=== PATIENT | female | born 1995 | race African-American/Black ===

== ENCOUNTER 2017-03-22 15:27 | Emergency (ER) | payer SELFPAY ==
--- NOTE | 2017-03-22 16:19 | ER Document Report ---
ED GI/ - General Chief Complaint: Nausea Stated Complaint: NAUSEA,ABDOMINAL PAIN Time Seen by Provider: 03/22/17 16:14 Mode of Arrival: Ambulatory Information source: Patient Notes: 21-year-old female presents to ED for complaint of one weeks worth of nausea with no vomiting and lower abdominal pain pelvic pain. She states she does not have any urinary or vaginal symptoms. She states that in December she had a with the pill in [place]. She states she went back for her follow-up visit and she had not passed the fetus. She states they gave her a second pill. She states she has not followed up with anybody since then. She states she has not had any menstrual cycle since January 05, 2017. She states she is concerned that she still has the second side of her and that is why she is not having any periods. She states she is having pressure and cramping sporadically but not constant in her lower abdomen pelvic area. TRAVEL OUTSIDE OF THE [place] IN LAST 30 DAYS: No - HPI Patient complains to provider of: Pelvic pain Onset: Other - The last week Timing/Duration: Intermittent Quality of pain: Cramping, Pressure Severity at maximum: Mild Pain Level: 2 Location: Pelvis Vaginal bleeding (Compared to normal period): None LMP: 01/05/2017 Associated symptoms: Other - Pelvic pain Exacerbated by: Movement Relieved by: Denies Similar symptoms previously: Yes Recently seen / treated by doctor: No - Related Data Allergies/Adverse Reactions: latex [Latex] Allergy (Mild, Verified 03/22/17 15:29) rash Past Medical History - General Information source: Patient - Social History Smoking Status: Current Every Day Smoker Cigarette use (# per day): Yes - 3-4 cigarettes a day Chew tobacco use (# tins/day): No Smoking Education Provided: Yes - Less than 2 minutes Frequency of alcohol use: Social Drug Abuse: None Occupation: sales Lives with: Spouse/Significant other Family History: CVA, DM, Hypertension, Malignancy. denies: Arthritis, CAD, COPD , Hyperlipidemia, Thyroid Disfunction Patient has suicidal ideation: No Patient has homicidal ideation: No - Past Medical History Cardiac Medical History: Reports: None Pulmonary Medical History: Reports: Hx Asthma, Hx Bronchitis EENT Medical History: Reports: None Neurological Medical History: Reports: None Endocrine Medical History: Reports: None Renal/ Medical History: Reports: None Malignancy Medical History: Reports: None GI Medical History: Reports: Hx Gastroesophageal Reflux Disease Musculoskeltal Medical History: Reports None Skin Medical History: Reports None Psychiatric Medical History: Reports: Hx Depression Traumatic Medical History: Reports: None Infectious Medical History: Reports: None Surgical Hx: Negative Past Surgical History: Reports: None - Immunizations Immunizations up to date: Yes Hx Diphtheria, Pertussis, Tetanus Vaccination: Yes Review of Systems - Review of Systems Constitutional: No symptoms reported EENT: No symptoms reported Cardiovascular: No symptoms reported Respiratory: No symptoms reported Gastrointestinal: Abdominal pain Genitourinary: No symptoms reported Female Genitourinary: Last menstrual period - 01/05/2017 Musculoskeletal: No symptoms reported Skin: No symptoms reported Hematologic/Lymphatic: No symptoms reported Neurological/Psychological: No symptoms reported Physical Exam - Vital signs Vitals: Temp Pulse Resp BP Pulse Ox 98.4 F 101 H 18 126/70 H 100 03/22/17 15:42 03/22/17 15:42 03/22/17 15:42 03/22/17 15:42 03/22/17 15:42 Interpretation: Normal - General General appearance: Appears well, Alert - HEENT Head: Normocephalic, Atraumatic Eyes: Normal Pupils: PERRL - Respiratory Respiratory status: No respiratory distress Chest status: Nontender Breath sounds: Normal Chest palpation: Normal - Cardiovascular Rhythm: Regular Heart sounds: Normal auscultation Murmur: No - Abdominal Inspection: Normal Distension: No distension Bowel sounds: Normal Tenderness: Tender - Bladder area Organomegaly: No organomegaly - Back Back: Normal, Nontender - Extremities General upper extremity: Normal inspection, Nontender, Normal color, Normal ROM , Normal temperature General lower extremity: Normal inspection, Nontender, Normal color, Normal ROM , Normal temperature, Normal weight bearing. No: Larisa's sign - Neurological Neuro grossly intact: Yes Cognition: Normal Orientation: AAOx4 Alvin Coma Scale Eye Opening: Spontaneous Alvin Coma Scale Verbal: Oriented Alvin Coma Scale Motor: Obeys Commands Donahue Coma Scale Total: 15 Speech: Normal Motor strength normal: LUE, RUE, LLE, RLE Sensory: Normal - Psychological Associated symptoms: Normal affect, Normal mood - Skin Skin Temperature: Warm Skin Moisture: Dry Skin Color: Normal Course - Re-evaluation Re-evalutation: 03/22/17 19:13 Discussed labs and ultrasound with patient and patient discharged home to follow -up with her primary doctor and TRACK CAR OPERATOR. - Vital Signs Vital signs: Temp Pulse Resp BP Pulse Ox 98.4 F 101 H 18 126/70 H 100 03/22/17 15:42 03/22/17 15:42 03/22/17 15:42 03/22/17 15:42 03/22/17 15:42 - Diagnostic Test Radiology reviewed: Image reviewed, Reports reviewed Discharge - Discharge Clinical Impression: Pelvic pain Condition: Stable Disposition: HOME, SELF-CARE Additional Instructions: Pelvic Pain There are many causes of pain in the pelvic area. The cause could be the tubes, ovaries, uterus, intestines, appendix, pelvic muscles and connective tissue, or the urinary tract. The cause of your pelvic pain is not clear. However, it seems safe to treat you outside the hospital. If the pain sounds like a temporary problem, we sometimes wait to see if it goes away. Other patients may need additional tests, such as pelvic ultrasound or cultures. Conditions may change. Call us or come back for reexamination if any problems occur, such as: (1) Pain that becomes more severe, steady, or becomes concentrated in one specific area. Also, pain that is more severe with movement or coughing. (2) Vomiting that persists or becomes more frequent. (3) Blood in the vomitus, urine, or bowel movements. Blood in the stool may have a tarry or black appearance. (4) Shaking chills or fever greater than 100 degrees. (5) The abdomen becomes more distended or swollen. (6) Bowel movements cease. (7) Heavy vaginal bleeding. Your UA and ultrasound were both negative. You are not . Please follow-up with a TRACK CAR OPERATOR or your primary doctor for any continued pelvic pain or any other concerns. If you do not start you. In the next couple weeks I would definitely follow-up with the TRACK CAR OPERATOR. Forms: Elevated Blood Pressure, Smoking Cessation Education Referrals: REGINE PEDRAZA MD [Primary Care Provider] - Follow up as needed [facility] [Provider Group] - Follow up as needed
[2017-03-22 16:27] LABS: APPEARANCE,URINE SLIGHTLY-CLOUDY; BILIRUBIN,URINE NEGATIVE (NEGATIVE); GLUCOSE, URINE NEGATIVE (NEGATIVE); KETONES,URINE NEGATIVE (NEGATIVE); LEUKOCYTE ESTERASE,URINE NEGATIVE (NEGATIVE); NITRITE,URINE NEGATIVE (NEGATIVE); PROTEIN,URINE NEGATIVE (NEGATIVE); URINE SPECIFIC GRAVITY 1.018; UROBILINOGEN,URINE NEGATIVE mg/dL (<2.0)
--- NOTE | 2017-03-22 19:02 | RADIOLOGY REPORT (SQ) ---
EXAM DESCRIPTION: U/S NON-OB PELVIS TV W/O DOP COMPLETED DATE/TIME: 03/22/2017 6:52 pm REASON FOR STUDY: Pelvic pain COMPARISON: None. TECHNIQUE: Dynamic and static grayscale images acquired of the pelvis via transvaginal approach and recorded on PACS. Additional selected color Doppler and spectral images recorded. LIMITATIONS: None. FINDINGS: UTERUS: Contour normal. No mass. ENDOMETRIAL STRIPE: No focal or generalized thickening. No masses. CERVIX: 1.5 cm. No nabothian cysts. RIGHT OVARY: No abnormal masses. RIGHT OVARY DOPPLER: Doppler not done. LEFT OVARY: No abnormal masses. LEFT OVARY DOPPLER: Doppler not done. FREE FLUID: None noted. OTHER: No other significant finding. MEASUREMENTS: UTERUS: 6.9 x 4.6 x 5.4 cm. ENDOMETRIAL STRIPE: 6 mm. RIGHT OVARY: 4.2 x 2.8 x 2.4 cm. LEFT OVARY: 3.9 x 2.4 x 3 cm. IMPRESSION: Normal transvaginal pelvic ultrasound. TECHNICAL DOCUMENTATION: JOB ID: [id number]- All Rights Reserved
[2017-03-22 19:17] VITALS: BP 117/66
== END 2017-03-22 19:17 | disposition home or self-care (01) ==
LOC: ER 15:27
DX: R11.0 Nausea (principal); R10.2 Pelvic and perineal pain; F17.210 Nicotine dependence, cigarettes, uncomplicated; Z71.6 Tobacco abuse counseling; Z91.040 Latex allergy status
CPT/HCPCS: 76830; 81001; 81025; 99284

== ENCOUNTER 2018-05-20 01:32 | Emergency (ER) | payer BC, OTHER ==
[2018-05-20 01:43] VITALS: BP 129/70
== END 2018-05-20 02:07 | disposition left against medical advice (07) ==
LOC: ER 01:32
DX: Z53.21 Procedure and treatment not carried out due to patient leaving prior to being seen by health care provider (principal)

== ENCOUNTER 2019-09-12 16:04 | Outpatient (CLI) | payer OTHER, MEDICAID ==
--- NOTE | 2019-09-12 17:10 | Non Stress Test Report ---
Non Stress Test Datetime Report Generated by CPN: 09/12/2019 17:10 DEMOGRAPHIC EGA NST: 34.0 INDICATION Indication for Study (NST) Other: IUP @ 34 wks, GDM MONITORING Monitor Explained: Monitor Explained; Test Explained; Patient Verbalized Understanding Time on Monitor: 09/12/2019 16:16 Time off Monitor: 09/12/2019 16:51 NST Duration: 35 NST INTERVENTIONS NST Interventions: PO Hydration; Reposition Patient Physician Notified NST: Dr. Small BABY A: [id number] BABY A Movement : Present Contraction Frequency : rare FHR Baseline : 135 Accelerations : 15X15 Decelerations : None Variability : Moderate 6-25bpm NST Review: Meets Criteria for Reactive NST NST Review and Verified By : Rhett Forbes RN NST Results: Reactive NST REPORT Report Trigger: Send Report
== END 2019-09-12 17:06 | disposition home or self-care (01) ==
LOC: LC 16:04
PROVIDERS: ATTEND Obstetrics & Gynecology
DX: O24.415 Gestational diabetes mellitus in pregnancy, controlled by oral hypoglycemic drugs (principal); Z3A.34 34 weeks gestation of pregnancy; Z91.040 Latex allergy status; Z79.84 Long term (current) use of oral hypoglycemic drugs
CPT/HCPCS: 59025

== ENCOUNTER 2019-09-27 16:55 | Outpatient (CLI) | payer OTHER, MEDICAID | END 2019-09-27 18:11 | disposition home or self-care (01) | LOC: LC 16:55 | PROVIDERS: ATTEND Obstetrics & Gynecology | DX: O24.419 Gestational diabetes mellitus in pregnancy, unspecified control (principal); Z3A.36 36 weeks gestation of pregnancy; Z91.040 Latex allergy status | CPT/HCPCS: 59025; 94760 ==

== ENCOUNTER 2019-10-17 07:27 | Inpatient (IN) | payer OTHER, MEDICAID ==
[2019-10-12 10:38] LABS: APPEARANCE,URINE CLOUDY; BILIRUBIN,URINE NEGATIVE (NEGATIVE); CALCIUM OXALATE CRYSTALS,URINE MANY /HPF; COLOR,URINE YELLOW; GLUCOSE, URINE NEGATIVE (NEGATIVE); KETONES,URINE 20 mg/dL (NEGATIVE); LEUKOCYTE ESTERASE,URINE TRACE (NEGATIVE); NITRITE,URINE NEGATIVE (NEGATIVE); PROTEIN,URINE 100 mg/dL (NEGATIVE)
[2019-10-12 10:42] LABS: ABSOLUTE EOSINOPHILS # (AUTO) 0.1 10^3/uL (0.0-0.6); ABSOLUTE LYMPHOCYTES (AUTO) 1.8 10^3/uL (0.5-4.7); ABSOLUTE MONOCYTES (AUTO) 0.4 10^3/uL (0.1-1.4); BASOPHILS % (AUTO) 0.5 % (0-2); EOSINOPHILS % (AUTO) 1.8 % (0-6); HEMATOCRIT 34.4 % (36.0-47.0); HEMOGLOBIN 11.8 g/dL (12.0-15.5); LYMPHOCYTES % (AUTO) 28.2 % (13-45); MEAN CORPUSCULAR HEMOGLOBIN 28.9 pg (27.0-33.4); MEAN CORPUSCULAR HGB CONC 34.4 g/dL (32.0-36.0); MEAN CORPUSCULAR VOLUME 84 fl (80-97); MONOCYTES % (AUTO) 6.4 % (3-13); PLATELET COUNT 259 10^3/uL (150-450); RED BLOOD COUNT 4.09 10^6/uL (3.72-5.28); RED CELL DISTRIBUTION WIDTH 13.4 % (11.5-14.0); SEGMENTED NEUTROPHILS % (AUTO) 63.1 % (42-78); TOTAL CELLS COUNTED % (AUTO) 100 %; WHITE BLOOD COUNT 6.3 10^3/uL (4.0-10.5)
[2019-10-12 10:56] LABS: URINE AMPHETAMINES SCREEN NEGATIVE; URINE BARBITURATES SCREEN NEGATIVE; URINE BENZODIAZEPINES SCREEN NEGATIVE; URINE COCAINE SCREEN NEGATIVE; URINE MARIJUANA (THC) SCREEN NEGATIVE; URINE METHADONE SCREEN NEGATIVE; URINE PHENCYCLIDINE SCREEN NEGATIVE
[~2019-10-17 07:27] MED LIST: CEFAZOLIN 2 GM/D5W RTU 2 GM/50 ML RTUPB IV PRN; RINGERS SOLUTION,LACTATED 1,000 ML IV PRN
[2019-10-17] MEDS ORDERED: CEFAZOLIN 2 GM/D5W RTU 2 GM/50 ML RTUPB IV ONE (08:11)
[2019-10-17] MEDS ORDERED: OXYTOCIN 10 UNIT/ML VIAL ONE (08:26)
[2019-10-17] MEDS ORDERED: MIDAZOLAM 2 MG/2 ML INJ ONE (08:26)
[2019-10-17] MEDS ORDERED: OXYTOCIN/0.9 % SODIUM CHLORIDE 30 UNIT/500 ML RTUINJ ONE ×2 (08:27→11:55)
[2019-10-17] MEDS ORDERED: ONDANSETRON HCL INJ/PF 4 MG/2 ML SDV ONE (08:27)
[2019-10-17] MEDS ORDERED: MORPHINE SULFATE 10 MG/ML INJ ONE (08:27)
[2019-10-17] MEDS ORDERED: BUPIVACAINE HCL 0.25 % INJ/PF (2.5 MG/1 ML) 30 ML VIAL ONE (08:28)
[2019-10-17] MEDS ORDERED: MEPERIDINE HCL/PF INJ 25 MG/1 ML DISP.SYRIN IV PRN (09:06)
[2019-10-17] MEDS ORDERED: ONDANSETRON HCL INJ/PF 4 MG/2 ML SDV IV PRN (09:06)
[2019-10-17] MEDS ORDERED: OXYCODONE-ACETAMINOPHEN 5-325 MG TABLET PO PRN ×3 (09:06→09:52)
[2019-10-17] MEDS ORDERED: MORPHINE SULFATE 10 MG/ML INJ IV PRN (09:06)
[2019-10-17] MEDS ORDERED: FENTANYL CITRATE INJ/PF 100 MCG/2 ML AMPUL IV PRN ×3 (09:06)
[2019-10-17] MEDS ORDERED: PROMETHAZINE HCL INJ 25 MG/1 ML VIAL IV PRN ×3 (09:06→09:52)
[2019-10-17] MEDS ORDERED: DIPHENHYDRAMINE HCL 50 MG/ML VIAL IV PRN (09:06)
[2019-10-17] MEDS ORDERED: DIPH/PERTUSS(ACELL)/TETANUS VAC/PF 0.5 ML SYR (>=10YO) IM PRN (09:52)
[2019-10-17] MEDS ORDERED: OXYTOCIN/0.9 % SODIUM CHLORIDE 30 UNIT/500 ML RTUINJ IV PRN (09:52)
[2019-10-17] MEDS ORDERED: HYDROMORPHONE HCL INJ/PF 2 MG/ML AMPULE IV PRN (09:52)
[2019-10-17] MEDS ORDERED: ACETAMINOPHEN 1,000 MG/100 ML RTUPB IV PRN (09:52)
[2019-10-17] MEDS ORDERED: RINGERS SOLUTION,LACTATED 1,000 ML IV PRN (09:52)
[2019-10-17] MEDS ORDERED: MEASLES,MUMPS&RUBELLA VACC/PF 0.5 ML VIAL SUBCUT PRN (09:52)
--- NOTE | 2019-10-17 10:01 | Operative Report ---
Operative Report DATE OF SURGERY: 10/17/19 PREOPERATIVE DIAGNOSIS: Repeat to prevent risk of uterine rupture and desires permanent surgical sterilization POSTOPERATIVE DIAGNOSIS: Same OPERATION: Repeat via low transverse uterine incision and tubal liga tion using Filshie clips SURGEON: TISHA GLEASON ANESTHESIA: Spinal TISSUE REMOVED OR ALTERED: Placenta COMPLICATIONS: None ESTIMATED BLOOD LOSS: 250 cc INTRAOPERATIVE FINDINGS: Viable female with Apgars of 8 and 9. Normal uterus tubes and ovaries PROCEDURE: Patient was taken to the OR and placed in supine position after her spinal anesthesia. She is prepared and draped in sterile fashion. Bell was placed for drainage of the bladder. Low transverse incision was made and carried down the level of the fascia. The fascial incision was made with knife and extended bilaterally with curved Vaughan scissors. There was dense scarring at the fascia. The fascia was off the rectus muscles using sharp and blunt dissection. The rectus muscles are in the midline. The peritoneum was entered without incident. The lower uterine segment was adhesed to the anterior abdominal wall and this was taken down sharply without injury to the bladder. Bladder blade was placed in uterine segment was identified. A low transverse incision was made creating a bladder flap. Bladder blade was placed low transverse uterine incision was made with the knife and extended with fingertips. The baby was delivered with some fundal pressure. Mouth and nose were suctioned free. The cord is doubly clamped and cut. Baby is passed off to the county supervisor in attendance. The placenta was manually extracted with trailing membranes. The uterus was externalized wrapped in a moist lap sponge. Uterine contents wiped free. Uterus was closed with a running locking layer of 0 chromic suture using the second layer to imbricate the first completing a double layer closure of the uterus. The serosa was closed with a running 2-0 chromic stitch. The tubal ligation was carried out by placing a Filshie clip at the mid isthmic portion of each fallopian tube. Both tubes were identified by their fimbriated end. The pelvis was irrigated and suctioned free of fluid the uterus was replaced in the abdomen. The abdominal wall peritoneum was closed with running 2-0 chromic stitch. Fascia was closed with a running 0 Vicryl in 2 segments. Lonnie's layer was brought together with 0 plain gut stitch and the s kin was closed with running subcuticular 4-0 undyed Vicryl stitch. The wound was dressed mother and baby did well.
[2019-10-17] MEDS ORDERED: ACETAMINOPHEN 1,000 MG/100 ML RTUPB IV ONE (11:52)
[2019-10-17] MEDS: PRENATAL VITAMIN W DHA CAPSULE PO SCH (12:19)
[2019-10-17] MEDS: DOCUSATE SODIUM 100 MG CAPSULE PO SCH ×2 (12:19→17:06)
[2019-10-17] MEDS: KETOROLAC TROMETHAMINE INJ/PF 30 MG/1 ML SDV IV SCH ×2 (13:07→21:23)
[2019-10-17] MEDS: OXYCODONE-ACETAMINOPHEN 5-325 MG TABLET PO PRN ×2 (13:22→21:39)
[2019-10-17] MEDS ORDERED: PHENYLEPHRINE HCL INJ/PF 10 MG/1 ML SDV ONE (14:34)
[2019-10-17] MEDS ORDERED: ACETAMINOPHEN 325 MG TABLET PO PRN (16:00)
[2019-10-18] MEDS: OXYCODONE-ACETAMINOPHEN 5-325 MG TABLET PO PRN ×4 (02:56→20:23)
[2019-10-18] MEDS: KETOROLAC TROMETHAMINE INJ/PF 30 MG/1 ML SDV IV SCH (06:16)
[2019-10-18] MEDS ORDERED: RINGERS SOLUTION,LACTATED 1,000 ML IV ONE (06:30)
[2019-10-18 07:42] LABS: HEMATOCRIT 23.1 % (36.0-47.0); MEAN CORPUSCULAR HEMOGLOBIN 28.6 pg (27.0-33.4); MEAN CORPUSCULAR HGB CONC 33.4 g/dL (32.0-36.0); MEAN CORPUSCULAR VOLUME 85 fl (80-97); PLATELET COUNT 251 10^3/uL (150-450); RED CELL DISTRIBUTION WIDTH 14.1 % (11.5-14.0); WHITE BLOOD COUNT 11.6 10^3/uL (4.0-10.5)
[2019-10-18 07:48] LABS: HEMOGLOBIN 7.7 g/dL (12.0-15.5)
[2019-10-18] MEDS: SIMETHICONE 80 MG TAB.CHEW PO PRN ×2 (07:50→20:36)
[2019-10-18] MEDS ORDERED: ONDANSETRON HCL INJ/PF 4 MG/2 ML SDV IV ONE (08:30)
[2019-10-18] MEDS: PRENATAL VITAMIN W DHA CAPSULE PO SCH (12:06)
[2019-10-18] MEDS: DOCUSATE SODIUM 100 MG CAPSULE PO SCH ×2 (12:06→17:34)
[2019-10-18] MEDS: IBUPROFEN 800 MG TABLET PO SCH ×2 (12:06→17:34)
--- NOTE | 2019-10-18 13:54 | PDOC PROGRESS REPORT ---
Subjective-OB Progress Note for:: 10/18/19 Subjective: I was called by the RN this am d/t pt pulse elevated 120s, BP low but stable. Hgb 7. Reports pt has only had 150cc urine output since FC was d/c last night around 2200. night shift supervisor RN reported bladder scan done this am around 6 and found to have approx 350cc urine. Pt got up to void but was too dizzy and was assisted back to bed. Pt was put on bed mcdonald but was unable to void, FC was replaced per Dr. Ford orders. 2 Units of PRBCs ordered and infusing now. This afternoon, pt reports to me that she is feeling a little better. She is bonding with baby. PRBCs still infusing, FC to BSD with darin urine. Pain is controlled but she feels like her abdomen is swollen. Physical Exam (OB) Vital Signs: Temp Pulse Resp BP Pulse Ox 98.4 F 109 H 18 114/62 100 10/18/19 13:09 10/18/19 13:09 10/18/19 13:09 10/18/19 13:09 10/18/19 13:09 Intake & Output 10/17/19 10/18/19 10/19/19 06:59 06:59 06:59 Intake Total 600 0 Output Total 1500 Balance -900 0 - PIH/Pre-Eclampsia DTR's: 1 + Clonus: Negative Headache: Absent Epigastric Pain: - upper pain in abdomen Visual Changes: No - Dressing Removed: Yes - opsite Incision: Dressing - Lochia Lochia Amount: Scant < 10 ml Lochia Color: Rubra/Red - Abdomen Description: Tender, Soft, Round Hernia Present: No Fundal Description: Firm, Midline Fundal Height: u/u - u/2 Objective-Diagnostic Laboratory: 10/18/19 07:05 10/16/19 10/18/19 15:40 07:05 WBC 11.6 H RBC 2.70 L Hgb 7.7 L Hct 23.1 L MCV 85 MCH 28.6 MCHC 33.4 RDW 14.1 H Plt Count 251 Blood Type A POSITIVE Antibody Screen NEGATIVE Assessment and Plan(PN) - Assessment and Plan (1) Delivery by elective caesarean section Is this a current diagnosis for this admission?: Yes Plan: discussed pt status with Dr Ford this am (2) Qualifiers: Weeks of gestation: 39 weeks Qualified Code(s): Z3A.39 - 39 weeks gestation of Is this a current diagnosis for this admission?: Yes - Time Spent with Patient Time with patient: Less than 15 minutes Medications reviewed and adjusted accordingly: Yes - Disposition Anticipated Discharge: Home Within: within 24 hours, within 48 hours
[2019-10-19] MEDS: IBUPROFEN 800 MG TABLET PO SCH ×3 (00:52→13:00)
[2019-10-19 01:53] LABS: HEMATOCRIT 23.3 % (36.0-47.0); MEAN CORPUSCULAR HEMOGLOBIN 28.9 pg (27.0-33.4); MEAN CORPUSCULAR HGB CONC 34.5 g/dL (32.0-36.0); MEAN CORPUSCULAR VOLUME 84 fl (80-97); PLATELET COUNT 204 10^3/uL (150-450); RED BLOOD COUNT 2.78 10^6/uL (3.72-5.28); RED CELL DISTRIBUTION WIDTH 13.8 % (11.5-14.0); WHITE BLOOD COUNT 11.7 10^3/uL (4.0-10.5)
[2019-10-19] MEDS: OXYCODONE-ACETAMINOPHEN 5-325 MG TABLET PO PRN ×2 (04:17→09:43)
[2019-10-19] MEDS: SIMETHICONE 80 MG TAB.CHEW PO PRN ×2 (05:22→13:00)
[2019-10-19] MEDS: PRENATAL VITAMIN W DHA CAPSULE PO SCH (09:42)
[2019-10-19] MEDS: DOCUSATE SODIUM 100 MG CAPSULE PO SCH (09:43)
--- NOTE | 2019-10-19 10:03 | PDOC DISCHARGE SUMMARY ---
Impression - Admit/DC Date/PCP Admission Date/Primary Care Provider: 10/17/19 07:27 TISHA GLEASON MD Discharge Date: 10/19/19 - Additional Information Resuscitation Status: Full Code Discharge Diet: As Tolerated, Regular Discharge Activity: Activity As Tolerated, No Driving, No Lifting Over 10 Pounds, No Lifting/Push/Pulling, Pelvic Rest, No tub bath Referrals: TISHA GLEASON MD [Primary Care Provider] - (A 1 week) Prescriptions: Oxycodone HCl/Acetaminophen [Percocet 5-325 mg Tablet] 1 tab PO Q4HP PRN #20 tablet PRN Reason: Ibuprofen [Motrin 800 mg Tablet] 800 mg PO Q6 #30 tablet Home Medications: Pnv with Ca,No.71/Iron/FA [ Vitamin Tablet] 1 each PO DAILY 03/06/14 Ibuprofen [Motrin 800 mg Tablet] 800 mg PO Q6 #30 tablet 10/19/19 Oxycodone HCl/Acetaminophen [Percocet 5-325 mg Tablet] 1 tab PO Q4HP PRN #20 tablet 10/19/19 HPI Gestational Age: 39 Reason(s) for Admission: Ceasarean Section-Repeat, Gestional Diabetes Procedures: NST, Ultrasound Intrapartum Procedure(s): : Low Cervical, Transverse Hospital Course Hospital Course: 2 units packed cells for blood loss and elevated pulse Results Laboratory Results: WBC 11.7 10^3/uL (4.0-10.5) H 10/19/19 01:42 RBC 2.78 10^6/uL (3.72-5.28) L 10/19/19 01:42 Hgb 8.0 g/dL (12.0-15.5) L 10/19/19 01:42 Hct 23.3 % (36.0-47.0) L 10/19/19 01:42 MCV 84 fl (80-97) 10/19/19 01:42 MCH 28.9 pg (27.0-33.4) 10/19/19 01:42 MCHC 34.5 g/dL (32.0-36.0) 10/19/19 01:42 RDW 13.8 % (11.5-14.0) 10/19/19 01:42 Plt Count 204 10^3/uL (150-450) 10/19/19 01:42 Lymph % (Auto) 28.2 % (13-45) 10/12/19 09:02 Evangeline % (Auto) 6.4 % (3-13) 10/12/19 09:02 Eos % (Auto) 1.8 % (0-6) 10/12/19 09:02 Baso % (Auto) 0.5 % (0-2) 10/12/19 09:02 Absolute Neuts (auto) 4.0 10^3/uL (1.7-8.2) 10/12/19 09:02 Absolute Lymphs (auto) 1.8 10^3/uL (0.5-4.7) 10/12/19 09:02 Absolute Monos (auto) 0.4 10^3/uL (0.1-1.4) 10/12/19 09:02 Absolute Eos (auto) 0.1 10^3/uL (0.0-0.6) 10/12/19 09:02 Absolute Basos (auto) 0.0 10^3/uL (0.0-0.2) 10/12/19 09:02 Seg Neutrophils % 63.1 % (42-78) 10/12/19 09:02 Urine Color YELLOW 10/12/19 08:57 Urine Appearance CLOUDY 10/12/19 08:57 Urine pH 6.0 (5.0-9.0) 10/12/19 08:57 Ur Specific [place] 1.020 10/12/19 08:57 Urine Protein 100 mg/dL (NEGATIVE) H 10/12/19 08:57 Urine Glucose (UA) NEGATIVE mg/dL (NEGATIVE) 10/12/19 08:57 Urine Ketones 20 mg/dL (NEGATIVE) H 10/12/19 08:57 Urine Blood NEGATIVE (NEGATIVE) 10/12/19 08:57 Urine Nitrite NEGATIVE (NEGATIVE) 10/12/19 08:57 Urine Bilirubin NEGATIVE (NEGATIVE) 10/12/19 08:57 Urine Urobilinogen 4.0 mg/dL (<2.0) H 10/12/19 08:57 Ur Leukocyte Esterase TRACE (NEGATIVE) H 10/12/19 08:57 Urine WBC (Auto) 7 /HPF 10/12/19 08:57 Urine RBC (Auto) 2 /HPF 10/12/19 08:57 Squamous Epi Cells Auto 35 /HPF 10/12/19 08:57 Calcium Oxalate Cr Auto MANY /HPF 10/12/19 08:57 Urine Mucus (Auto) MOD /LPF 10/12/19 08:57 Urine Ascorbic Acid NEGATIVE (NEGATIVE) 10/12/19 08:57 Urine Opiates Screen NEGATIVE 10/12/19 08:57 Urine Methadone Screen NEGATIVE 10/12/19 08:57 Ur Barbiturates Screen NEGATIVE 10/12/19 08:57 Ur Phencyclidine Scrn NEGATIVE 10/12/19 08:57 Ur Amphetamines Screen NEGATIVE 10/12/19 08:57 U Benzodiazepines Scrn NEGATIVE 10/12/19 08:57 Urine Cocaine Screen NEGATIVE 10/12/19 08:57 U Marijuana (THC) Screen NEGATIVE 10/12/19 08:57 COVID-19 Source NASOPHARYNGEAL 10/12/19 09:04 COVID-19 (LETICIA) NOT DETECTED 10/12/19 09:04 Blood Type A POSITIVE 10/16/19 15:40 Blood Type Confirm A POSITIVE 10/16/19 15:40 Antibody Screen NEGATIVE 10/16/19 15:40 Crossmatch See Detail 10/16/19 15:40 Plan Health Concerns: anemia, pain control Plan of Treatment: discharged home, pt to take iron, rev S&S to report, voiding rev Goals: no complications Time Spent: Less than 30 Minutes - pt needs to void before discharge
[2019-10-19 12:24] VITALS: BP 131/70
--- NOTE | 2019-11-01 15:05 | PDOC PROGRESS REPORT ---
Subjective Progress Note for:: 11/01/19 Subjective:: In response to the query, the diagnosis is acute blood loss anemia. Reason For Visit: REPEAT C SECTION Physical Exam - Physical Exam Vital Signs: Temp Pulse Resp BP Pulse Ox 98.0 F 112 H 18 131/70 H 100 10/19/19 12:23 10/19/19 12:23 10/19/19 12:23 10/19/19 12:23 10/19/19 12:23 Result Laboratory Results: 10/19/19 01:42 Assessment & Plan - Time Time Spent with patient: Less than 15 minutes
== END 2019-10-19 13:50 | disposition home or self-care (01) | DRG 784 ==
LOC: LR 07:27 → 2N 12:16
PROVIDERS: ADMIT Obstetrics & Gynecology; ATTEND Obstetrics & Gynecology
PROC: 10D00Z1 Extraction of Products of Conception, Low, Open Approach (ICD-10-PCS; principal; 2019-10-17)
PROC: 0UL70CZ Occlusion of Bilateral Fallopian Tubes with Extraluminal Device, Open Approach (ICD-10-PCS; 2019-10-17)
PROC: 30233N1 Transfusion of Nonautologous Red Blood Cells into Peripheral Vein, Percutaneous Approach (ICD-10-PCS; 2019-10-18)
DX: O34.211 Maternal care for low transverse scar from previous cesarean delivery (principal); Z30.2 Encounter for sterilization; D62 Acute posthemorrhagic anemia; O90.81 Anemia of the puerperium; O99.334 Smoking (tobacco) complicating childbirth; F17.210 Nicotine dependence, cigarettes, uncomplicated; O24.425 Gestational diabetes mellitus in childbirth, controlled by oral hypoglycemic drugs; Z28.21 Immunization not carried out because of patient refusal; Z91.040 Latex allergy status; Z3A.39 39 weeks gestation of pregnancy; Z37.0 Single live birth; Z11.59 Encounter for screening for other viral diseases
CPT/HCPCS: 1961; 36415; 36430; 64450; 76942; 80307; 81001; 85025; 85027; 86850; 86900; 86901; 86920; 87635; 94760; 94799; C1758; C9803; J0131; J0690; J1170; J1885; J2250; J2270; J2370; J2405; J2590; J3490; J7120; P9016

== ENCOUNTER → 2019-10-17 | Outpatient (CLI) | payer OTHER, MEDICAID ==
[2019-10-17 06:50] LABS: APPEARANCE,URINE CLOUDY; BILIRUBIN,URINE NEGATIVE (NEGATIVE); COLOR,URINE YELLOW; GLUCOSE, URINE NEGATIVE (NEGATIVE); KETONES,URINE 80 mg/dL (NEGATIVE); LEUKOCYTE ESTERASE,URINE SMALL (NEGATIVE); NITRITE,URINE NEGATIVE (NEGATIVE); PROTEIN,URINE 100 mg/dL (NEGATIVE); URINE SPECIFIC GRAVITY 1.027
[2019-10-17 07:14] LABS: URINE AMPHETAMINES SCREEN NEGATIVE; URINE BARBITURATES SCREEN NEGATIVE; URINE BENZODIAZEPINES SCREEN NEGATIVE; URINE COCAINE SCREEN NEGATIVE; URINE MARIJUANA (THC) SCREEN NEGATIVE; URINE METHADONE SCREEN NEGATIVE; URINE PHENCYCLIDINE SCREEN NEGATIVE
== END ==
LOC: LC 06:06
PROVIDERS: ATTEND Student in an Organized Health Care Education/Training Program
DX: Z34.93 Encounter for supervision of normal pregnancy, unspecified, third trimester (principal); Z3A.38 38 weeks gestation of pregnancy
CPT/HCPCS: 80307; 81005; 82962; 84112

== ENCOUNTER 2019-10-31 20:52 | Inpatient (IN) | payer OTHER, MEDICAID ==
--- NOTE | 2019-10-31 21:35 | ER Document Report ---
ED Medical Screen (RME) - General Chief Complaint: Chest Pain > 30 Stated Complaint: LOWER ABDOMINAL PAIN Time Seen by Provider: 10/31/19 21:34 Primary Care Provider: TISHA GLEASON MD [Primary Care Provider] - Follow up as needed Information source: Patient Notes: This is a 24-year-old female who is 14 days postop complaining of right-sided chest pain shortness of breath and pain on deep inspiration. TRAVEL OUTSIDE OF THE [place] IN LAST 30 DAYS: No - Related Data Allergies/Adverse Reactions: latex [Latex] Allergy (Mild, Verified 10/31/19 21:32) rash Past Medical History Pulmonary Medical History: Reports: Hx Asthma, Hx Bronchitis Renal/ Medical History: Denies: Hx Peritoneal Dialysis GI Medical History: Reports: Hx Gastroesophageal Reflux Disease Psychiatric Medical History: Reports: Hx Depression - Immunizations Immunizations up to date: Yes Hx Diphtheria, Pertussis, Tetanus Vaccination: Yes Physical Exam - Vital signs Vitals: Temp Pulse Resp BP Pulse Ox 98.8 F 97 22 H 110/65 100 10/31/19 21:12 10/31/19 21:12 10/31/19 21:12 10/31/19 21:12 10/31/19 21:12 Course - Vital Signs Vital signs: Temp Pulse Resp BP Pulse Ox 98.8 F 97 22 H 110/65 100 10/31/19 21:12 10/31/19 21:12 10/31/19 21:12 10/31/19 21:12 10/31/19 21:12 Doctor's Discharge - Discharge Referrals: TISHA GLEASON MD [Primary Care Provider] - Follow up as needed
--- NOTE | 2019-10-31 23:04 | ER Document Report ---
ED General - General Chief Complaint: Abdominal Pain Stated Complaint: LOWER ABDOMINAL PAIN Time Seen by Provider: 10/31/19 21:34 TRAVEL OUTSIDE OF THE [place] IN LAST 30 DAYS: No - HPI Notes: 24-year-old female history of 14 days ago presents with 1 day of gradual onset severe constant right lateral posterior lower chest pain in the right upper lateral abdominal pain/right flank pain. Pain has been constant, feels worse when patient moves and when she takes a deep breath. Patient has been healing well from the C/S and had some postop low volume vaginal bleeding which has resolved and has no discharge or pelvic pain, no pain at the incision site, no complications after . Patient was doing a lot of work in the house day before onset but does not recall any injury. Patient denies any fever, vomiting, diarrhea, constipation, melena, bright red blood per rectum, dysuria, frequency, urgency, prior episodes - Related Data Allergies/Adverse Reactions: latex [Latex] Allergy (Mild, Verified 10/31/19 21:32) rash Home Medications: PAIN MEDS: PERECOCET, IBUPROFEN Past Medical History - General Information source: Patient - Social History Smoking Status: Former Smoker Frequency of alcohol use: None Drug Abuse: None Family History: CVA, DM, Hypertension, Malignancy. denies: Arthritis, CAD, COPD, Hyperlipidemia, Thyroid Disfunction Pulmonary Medical History: Reports: Hx Asthma, Hx Bronchitis Renal/ Medical History: Denies: Hx Peritoneal Dialysis GI Medical History: Reports: Hx Gastroesophageal Reflux Disease Psychiatric Medical History: Reports: Hx Depression - Immunizations Immunizations up to date: Yes Hx Diphtheria, Pertussis, Tetanus Vaccination: Yes Review of Systems - Review of Systems Notes: REVIEW OF SYSTEMS: CONSTITUTIONAL : Denies fever, chills, or sweats. EENT: Denies recent cold/sinus symptoms, denies throat pain CARDIOVASCULAR: + chest pain, -SKIP RESPIRATORY: Denies cough, denies shortness of breath. GASTROINTESTINAL: + abdominal pain, nausea/vomiting. GENITOURINARY: Denies difficulty urinating, painful urination. FEMALE GENITOURINARY: Denies abnormal vaginal bleeding, vaginal discharge. MUSCULOSKELETAL: Denies neck pain, +back pain. SKIN: Denies rash or skin lesions. HEMATOLOGIC : Denies easy bruising or bleeding. LYMPHATIC: Denies swollen, enlarged glands. NEUROLOGICAL: Denies headache, denies change in gait. PSYCHIATRIC: Denies anxiety or stress or depression. Physical Exam - Vital signs Vitals: Temp Pulse Resp BP Pulse Ox 98.8 F 97 22 H 110/65 100 10/31/19 21:12 10/31/19 21:12 10/31/19 21:12 10/31/19 21:12 10/31/19 21:12 - Notes Notes: PHYSICAL EXAMINATION: GENERAL: Well-appearing young adult female in severe pain HEAD: Atraumatic, normocephalic. EYES: Pupils equal round and appropriate constriction, sclera anicteric, conjunctiva are normal. ENT: nares patent, moist mucous membranes. NECK: Normal range of motion, supple without lymphadenopathy LUNGS: Breath sounds clear to auscultation bilaterally and equal. No wheezes rales or rhonchi. HEART: Regular rate and rhythm without murmurs ABDOMEN: Soft, nontender, no guarding, no masses, no CVAT, well-healing nontender surgical incision without any discharge EXTREMITIES: Normal range of motion, no pitting or edema. No cyanosis. NEUROLOGICAL: Awake, alert, conversing appropriately, moves all extremities spontaneously. PSYCH: Normal mood, normal affect. SKIN: Warm, Dry, normal turgor, no rashes or lesions noted. Course - Re-evaluation Re-evalutation: 11/01/19 07:28 Patient has very severe pain and was difficult to localize and was high risk for PE given that she was will also have abdominal pain. Obtain right upper quadrant ultrasound initially which was normal so I sent patient for CTA to rule out PE. PE study was not able to fully rule out subsegmental PE due to motion artifact but then reevaluating patient she said pain had moved more towards her lower abdomen. Given that patient was still in severe pain I obta ined a CT abdomen pelvis without IV contrast which showed some loculated fluid possibly hemorrhage in the abdomen. I spoke to radiologist Dr. Foster who looked at scans and said that this hemorrhage was likely not 2 weeks old but patient has likely had hemorrhage recently. Given this finding, this was not explain patient's symptoms because free fluid in the abdomen is likely tracking up the posterior wall of the peritoneum and causing diaphragmatic irritation and referred pain. I discussed this with patient and with project account manager on-call, Dr. Santos, who agreed to accept patient for admission. I think this is appropriate as it is unknown if patient is currently bleeding and patient still has significant pain. Patient's exam has remained stable throughout ED course and patient is currently awaiting bed on gynecology service. - Vital Signs Vital signs: Temp Pulse Resp BP Pulse Ox 98.8 F 86 16 119/72 94 10/31/19 21:12 11/01/19 00:05 11/01/19 07:00 11/01/19 07:01 11/01/19 07:01 - Laboratory Result Diagrams: 10/31/19 22:55 10/31/19 22:55 Laboratory results interpreted by me: 10/31/19 10/31/19 10/31/19 22:55 22:55 22:55 RDW 14.1 H Plt Count 479 H Lymph % (Auto) 11.1 L Absolute Neuts (auto) 8.4 H Seg Neutrophils % 84.5 H D-Dimer 4.64 H Sodium 135.0 L Urine Blood Urine Urobilinogen Ur Leukocyte Esterase Urine Ascorbic Acid 10/31/19 23:55 RDW Plt Count Lymph % (Auto) Absolute Neuts (auto) Seg Neutrophils % D-Dimer Sodium Urine Blood LARGE H Urine Urobilinogen 4.0 H Ur Leukocyte Esterase TRACE H Urine Ascorbic Acid 40 H - EKG Interpretation by Me Additional EKG results interpreted by me: 10/31/19 23:04 Heart rate 98, no significant ST elevations or depressions, no significant T wave abnormalities, QTc 440 Discharge - Discharge Clinical Impression: pain Disposition: ADMITTED INPATIENT Admitting Provider: Dr. Michelle Santos Unit Admitted: Post
[2019-10-31 23:25] LABS: ABSOLUTE EOSINOPHILS # (AUTO) 0.1 10^3/uL (0.0-0.6); ABSOLUTE LYMPHOCYTES (AUTO) 1.1 10^3/uL (0.5-4.7); ABSOLUTE MONOCYTES (AUTO) 0.3 10^3/uL (0.1-1.4); ABSOLUTE NEUT (AUTO) 8.4 10^3/uL (1.7-8.2); BASOPHILS % (AUTO) 0.4 % (0-2); EOSINOPHILS % (AUTO) 0.7 % (0-6); HEMATOCRIT 40.5 % (36.0-47.0); HEMOGLOBIN 13.6 g/dL (12.0-15.5); LYMPHOCYTES % (AUTO) 11.1 % (13-45); MEAN CORPUSCULAR HEMOGLOBIN 28.8 pg (27.0-33.4); MEAN CORPUSCULAR HGB CONC 33.5 g/dL (32.0-36.0); MEAN CORPUSCULAR VOLUME 86 fl (80-97); MONOCYTES % (AUTO) 3.3 % (3-13); PLATELET COUNT 479 10^3/uL (150-450); RED BLOOD COUNT 4.71 10^6/uL (3.72-5.28); RED CELL DISTRIBUTION WIDTH 14.1 % (11.5-14.0); SEGMENTED NEUTROPHILS % (AUTO) 84.5 % (42-78); TOTAL CELLS COUNTED % (AUTO) 100 %; WHITE BLOOD COUNT 9.9 10^3/uL (4.0-10.5)
[2019-10-31 23:30] LABS: INTERNATIONAL RATION (INR) 1.05; PROTHROMBIN TIME 13.7 SEC (11.4-15.4)
[2019-10-31] MEDS ORDERED: MORPHINE SULFATE 10 MG/ML INJ IV ONE (23:30)
[2019-10-31] MEDS ORDERED: NORMAL SALINE 1000 ML 1,000 ML IV ONE (23:30)
[2019-10-31] MEDS ORDERED: ONDANSETRON HCL INJ/PF 4 MG/2 ML SDV IV ONE (23:30)
[2019-10-31 23:31] LABS: PARTIAL THROMBOPLASTIN TIME 33.5 SEC (23.5-35.8)
[2019-10-31 23:40] LABS: ALBUMIN 4.4 g/dL (3.5-5.0); ALKALINE PHOSPHATASE 102 U/L (38-126); ANION GAP 7 (5-19); ASPARTATE AMINO TRANSFERASE 22 U/L (14-36); BILIRUBIN,DIRECT 0.1 mg/dL (0.0-0.4); BLOOD UREA NITROGEN 12 mg/dL (7-20); CALCIUM 9.6 mg/dL (8.4-10.2); CARBON DIOXIDE 25 mmol/L (22-30); CHLORIDE 103 mmol/L (98-107); GLUCOSE 107 mg/dL (75-110); POTASSIUM 4.6 mmol/L (3.6-5.0); TOTAL PROTEIN 8.2 g/dL (6.3-8.2)
[2019-10-31 23:52] LABS: D-DIMER 4.64 ug/mL (0.00-0.50)
[2019-10-31 23:56] LABS: TROPONIN I 0.015 ng/mL
[2019-11-01 00:13] LABS: APPEARANCE,URINE SLIGHTLY-CLOUDY; BILIRUBIN,URINE NEGATIVE (NEGATIVE); COLOR,URINE YELLOW; GLUCOSE, URINE NEGATIVE (NEGATIVE); KETONES,URINE NEGATIVE (NEGATIVE); LEUKOCYTE ESTERASE,URINE TRACE (NEGATIVE); NITRITE,URINE NEGATIVE (NEGATIVE); PROTEIN,URINE NEGATIVE (NEGATIVE)
--- NOTE | 2019-11-01 00:40 | RADIOLOGY REPORT (SQ) ---
Ultrasound right upper quadrant on 11/01/2019 at 12:09 AM Clinical indications: Right upper quadrant pain COMPARISON: None FINDINGS: Multiple sonographic images are obtained throughout the right upper quadrant, both transverse and sagittal images are obtained. Visualized pancreas is unremarkable. Visualized aorta is unremarkable. Visualized liver is homogeneous without focal liver lesion. Visualized hepatic vasculature is patent and with a normal directional flow. There are no gallstones, gallbladder wall thickening or pericholecystic fluid. Common duct measures 3 mm which is within normal limits mitigating against obstruction of the biliary tree. Right kidney shows no hydronephrosis. No free fluid is noted in the right upper quadrant. IMPRESSION: Unremarkable exam.
[2019-11-01] MEDS ORDERED: MORPHINE SULFATE 10 MG/ML INJ IV ONE (00:48)
--- NOTE | 2019-11-01 01:59 | RADIOLOGY REPORT (SQ) ---
CLINICAL INDICATION: severe right lateral lower chest pain . . TECHNIQUE: CT arteriography was obtained of the chest with multiplanar MIP and/or 3-D angiographic reconstructions. This exam was performed according to our departmental dose-optimization program, which includes automated exposure control, adjustment of the mA and/or kV according to patient size and/or use of iterative reconstruction techniques. COMPARISON: None. CORRELATION: None. FINDINGS: Heterogeneous contrast bolus. Average Hounsfield unit measurement within main pulmonary artery segment of 177. Artifact from venous opacification. Motion artifact There is no central pulmonary embolus. Thoracic aorta is of normal caliber. The heart is enlarged. No pericardial effusion. No bulky mediastinal adenopathy. The lungs demonstrate right basilar airspace disease. Dependent atelectasis bilaterally. No significant pleural fluid. No pneumothorax. Visualized abdominal contents are unremarkable. Visualized bones are unremarkable. IMPRESSION: Dilute contrast bolus. Imaging is degraded by patient motion, with resultant artifact. The best possible images were obtained. No central pulmonary embolus. Dependent atelectasis. Right basilar airspace consolidative change, possible pneumonia.
[2019-11-01] MEDS ORDERED: KETOROLAC TROMETHAMINE INJ/PF 30 MG/1 ML SDV IV ONE (03:03)
--- NOTE | 2019-11-01 04:23 | RADIOLOGY REPORT (SQ) ---
CLINICAL INDICATION: severe r flank pain. . TECHNIQUE: Noncontrast spiral axial CT imaging was obtained of the abdomen and pelvis with multiplanar reconstructions. This exam was performed according to our departmental dose-optimization program, which includes automated exposure control, adjustment of the mA and/or kV according to patient size and/or use of iterative reconstruction techniques. COMPARISON: None. CORRELATION: None. FINDINGS: Abdomen: The chest is dictated separately. Residual contrast from CTA The liver is of normal size contour and attenuation. The gallbladder is nondistended without inflammatory change. The pancreas is of grossly normal contour on this noncontrast examination. The spleen is unremarkable. The adrenals are unremarkable. The kidneys appear grossly normal without evidence of urolithiasis or hydronephrosis. Excreted contrast within the collecting systems and ureters There is no evidence of free air. Small amount of free fluid within the pelvis which appears complex.. No bulky adenopathy. Abdominal aorta is nonaneurysmal. Pelvis: The bowel is nonobstructed. The bowel is unopacified with oral contrast. Pelvic contents demonstrate postsurgical change from tubal ligation. The uterus appears prominent.. The appendix is normal. Visualized bones are unremarkable. IMPRESSION: Prominent uterus. Small amount of free fluid in the deep pelvis which appears complex. There may be a component of hemorrhage within this. Postsurgical change from bilateral tubal ligation. The bowel is nonobstructed.. No free air. No free fluid.
[2019-11-01] MEDS ORDERED: OXYCODONE-ACETAMINOPHEN 5-325 MG TABLET PO PRN (05:53)
[2019-11-01] MEDS ORDERED: PROMETHAZINE HCL INJ 25 MG/1 ML VIAL IV PRN (05:53)
[2019-11-01] MEDS ORDERED: OXYTOCIN/0.9 % SODIUM CHLORIDE 30 UNIT/500 ML RTUINJ IV PRN (05:53)
[2019-11-01] MEDS ORDERED: ACETAMINOPHEN 325 MG TABLET PO PRN (05:53)
[2019-11-01] MEDS ORDERED: ACETAMINOPHEN 1 GM/100 ML RTUPB IV PRN (05:53)
[2019-11-01 07:41] LABS: ABSOLUTE BASOPHILS # (AUTO) 0.1 10^3/uL (0.0-0.2); ABSOLUTE EOSINOPHILS # (AUTO) 0.1 10^3/uL (0.0-0.6); ABSOLUTE LYMPHOCYTES (AUTO) 1.7 10^3/uL (0.5-4.7); ABSOLUTE MONOCYTES (AUTO) 0.5 10^3/uL (0.1-1.4); ABSOLUTE NEUT (AUTO) 7.2 10^3/uL (1.7-8.2); BASOPHILS % (AUTO) 0.6 % (0-2); EOSINOPHILS % (AUTO) 0.6 % (0-6); HEMATOCRIT 35.1 % (36.0-47.0); HEMOGLOBIN 11.8 g/dL (12.0-15.5); LYMPHOCYTES % (AUTO) 18.1 % (13-45); MEAN CORPUSCULAR HEMOGLOBIN 28.8 pg (27.0-33.4); MEAN CORPUSCULAR HGB CONC 33.8 g/dL (32.0-36.0); MEAN CORPUSCULAR VOLUME 85 fl (80-97); MONOCYTES % (AUTO) 5.3 % (3-13); PLATELET COUNT 420 10^3/uL (150-450); RED BLOOD COUNT 4.11 10^6/uL (3.72-5.28); RED CELL DISTRIBUTION WIDTH 14.6 % (11.5-14.0); SEGMENTED NEUTROPHILS % (AUTO) 75.4 % (42-78); TOTAL CELLS COUNTED % (AUTO) 100 %; WHITE BLOOD COUNT 9.5 10^3/uL (4.0-10.5)
[2019-11-01] MEDS: PRENATAL VITAMIN W DHA CAPSULE PO SCH (09:15)
[2019-11-01] MEDS: DOCUSATE SODIUM 100 MG CAPSULE PO SCH ×2 (09:15→17:59)
[2019-11-01] MEDS: RINGERS SOLUTION,LACTATED 1,000 ML IV PRN ×2 (09:54→18:08)
[2019-11-01] MEDS: HYDROMORPHONE HCL INJ/PF 2 MG/ML AMPULE IV PRN ×2 (09:54→19:07)
--- NOTE | 2019-11-01 10:20 | PDOC H&P ---
History of Present Illness Admission Date/PCP: 11/01/19 05:57 REGINE PEDRAZA MD Patient complains of: Right upper quadrant pain History of Present Illness: KAY CAMACHO is a 24 year old female She is 2 weeks after was healing well at home. She noted right upper quadrant pain after pizza and presented to the ER. Because of her recent C- section I believe some of the concerns regarding the surgery clouded her presentation. After she is reflected she felt that her pain is most likely from her gallbladder and up until this point has been healing well at home. Past Medical History Gynecological Infection: No Obstetrical History: none - Patient has a recent 2 weeks ago Pulmonary Medical History: Reports: Asthma, Bronchitis GI Medical History: Reports: Gastroesophageal Reflux Disease Psychiatric Medical History: Reports: Depression Past Surgical History Past Surgical History: with tubal ligation 2 weeks ago Social History Smoking Status: Former Smoker Hx Recreational Drug Use: No Family History Family History: CVA, DM, Hypertension, Malignancy. denies: Arthritis, CAD, COPD, Hyperlipidemia, Thyroid Disfunction Parental Family History Reviewed: Yes Children Family History Reviewed: Yes Sibling(s) Family History Reviewed.: Yes Medication/Allergy Home Medications: Ibuprofen [Motrin 800 mg Tablet] 800 mg PO DAILY 11/01/19 Oxycodone HCl/Acetaminophen [Percocet 5-325 mg Tablet] 1 tab PO Q6HP PRN 11/01/19 Allergies/Adverse Reactions: latex [Latex] Allergy (Mild, Verified 10/31/19 21:32) rash Physical Exam - Physical Exam Vital Signs: Temp Pulse Resp BP Pulse Ox 98.3 F 84 15 120/73 98 11/01/19 08:16 11/01/19 08:16 11/01/19 08:16 11/01/19 08:16 11/01/19 08:16 Intake & Output 10/31/19 11/01/19 11/02/19 06:59 06:59 06:59 Intake Total 1000 Balance 1000 Weight 93.4 kg General appearance: PRESENT: no acute distress Head exam: PRESENT: atraumatic Mouth exam: PRESENT: moist Neck exam: PRESENT: full ROM. ABSENT: carotid bruit, JVD, lymphadenopathy, thyromegaly Respiratory exam: PRESENT: unlabored Cardiovascular exam: PRESENT: RRR. ABSENT: diastolic murmur, rubs, systolic murmur Pulses: PRESENT: normal dorsalis pedis pul, +2 pedal pulses bilateral Vascular exam: PRESENT: normal capillary refill GI/Abdominal exam: PRESENT: normal bowel sounds, soft, other - Recent low transverse incision. ABSENT: distended, guarding, mass, organolmegaly, rebound, tenderness Rectal exam: PRESENT: deferred Extremities exam: PRESENT: full ROM. ABSENT: calf tenderness, clubbing, pedal edema Musculoskeletal exam: PRESENT: ambulatory Neurological exam: PRESENT: alert, awake, oriented to person, oriented to place, oriented to time, oriented to situation, CN II-XII grossly intact. ABSENT: motor sensory deficit Result Laboratory Results: 11/01/19 07:31 10/31/19 22:55 10/31/19 10/31/19 10/31/19 22:55 22:55 23:55 WBC 9.9 RBC 4.71 Hgb 13.6 Hct 40.5 MCV 86 MCH 28.8 MCHC 33.5 RDW 14.1 H Plt Count 479 H Seg Neutrophils % 84.5 H Sodium 135.0 L Potassium 4.6 Chloride 103 Carbon Dioxide 25 Anion Gap 7 BUN 12 Creatinine 0.64 Est GFR ( Amer) > 60 Glucose 107 Calcium 9.6 Total Bilirubin 1.0 AST 22 Alkaline Phosphatase 102 Total Protein 8.2 Albumin 4.4 Urine Color YELLOW Urine Appearance SLIGHTLY-CLOUDY Urine pH 5.0 Ur Specific [place] 1.020 Urine Protein NEGATIVE Urine Glucose (UA) NEGATIVE Urine Ketones NEGATIVE Urine Blood LARGE H Urine Nitrite NEGATIVE Ur Leukocyte Esterase TRACE H Urine WBC (Auto) 5 Urine RBC (Auto) 1 11/01/19 07:31 WBC 9.5 RBC 4.11 Hgb 11.8 L Hct 35.1 L MCV 85 MCH 28.8 MCHC 33.8 RDW 14.6 H Plt Count 420 Seg Neutrophils % 75.4 Sodium Potassium Chloride Carbon Dioxide Anion Gap BUN Creatinine Est GFR ( Amer) Glucose Calcium Total Bilirubin AST Alkaline Phosphatase Total Protein Albumin Urine Color Urine Appearance Urine pH Ur Specific [place] Urine Protein Urine Glucose (UA) Urine Ketones Urine Blood Urine Nitrite Ur Leukocyte Esterase Urine WBC (Auto) Urine RBC (Auto) 10/31/19 22:55 Troponin I 0.015 NT-Pro-B Natriuret Pep 40 Impressions: Abdomen Ultrasound 10/31/19 23:30 IMPRESSION: Unremarkable exam. Chest/Abdomen CTA 11/01/19 00:49 IMPRESSION: Dilute contrast bolus. Imaging is degraded by patient motion, with resultant artifact. The best possible images were obtained. No central pulmonary embolus. Dependent atelectasis. Right basilar airspace consolidative change, possible pneumonia. Abdomen/Pelvis CT 11/01/19 03:38 IMPRESSION: Prominent uterus. Small amount of free fluid in the deep pelvis which appears complex. There may be a component of hemorrhage within this. Postsurgical change from bilateral tubal ligation. The bowel is nonobstructed.. No free air. No free fluid. Assessment & Plan - Diagnosis (1) Right upper quadrant pain Is this a current diagnosis for this admission?: Yes Plan: Plan is to help with pain control. It appears well controlled at this point. We will monitor her overnight to ensure there are no other problems and she will likely be discharged tomorrow. If she continues to have right upper quadrant pain especially after fatty meals I have instructed her to see 1 of the general surgeons for further gallbladder evaluation. - Time Critical Time spent with patient: 15-24 minutes Medications reviewed and adjusted accordingly: Yes Anticipated Discharge Disposition: Home, Self Care Anticipated Discharge Timeframe: within 48 hours
[2019-11-01] MEDS: OXYCODONE-ACETAMINOPHEN 5-325 MG TABLET PO PRN ×2 (13:32→21:59)
--- NOTE | 2019-11-01 17:55 | EKG REPORT ---
SEVERITY:- BORDERLINE ECG - SINUS RHYTHM PROBABLE LEFT ATRIAL ABNORMALITY : Confirmed by: Francy Barksdale MD 01-Nov-2019 17:54:31
[2019-11-02] MEDS: SIMETHICONE 80 MG TAB.CHEW PO PRN ×2 (02:53→10:11)
[2019-11-02] MEDS: OXYCODONE-ACETAMINOPHEN 5-325 MG TABLET PO PRN ×2 (03:32→10:10)
[2019-11-02] MEDS: RINGERS SOLUTION,LACTATED 1,000 ML IV PRN (03:49)
[2019-11-02] MEDS: DOCUSATE SODIUM 100 MG CAPSULE PO SCH (10:03)
[2019-11-02] MEDS: PRENATAL VITAMIN W DHA CAPSULE PO SCH (10:03)
--- NOTE | 2019-11-02 10:26 | PDOC DISCHARGE SUMMARY ---
Impression - Admit/DC Date/PCP Admission Date/Primary Care Provider: 11/01/19 05:57 REGINE PEDRAZA MD Discharge Date: 11/02/19 - Discharge Diagnosis (1) Abdominal pain Is this a current diagnosis for this admission?: Yes (2) pain Is this a current diagnosis for this admission?: Yes (3) Right upper quadrant pain Is this a current diagnosis for this admission?: Yes (4) Status post repeat low transverse section Is this a current diagnosis for this admission?: Yes - Assessment Summary: patient presented yesterday with possible Gallbladder pain in her right upper quandrant. She had a c/section approximately 2 weeks ago. Workup in e ER was negative for gallbladder disease per radiology studies and her serology notes normal LFTs. Patient now indicating that she believes the pain is "gas" and states that normnally she does not pass flatus on a regular basis. I d/w patient the importance of good bowel health especially after surgery and encouraged stool softeners and gas relief medications such as Mylicon or MOM. I counseled patient to limited use of narcotic pain medication due to constipative effects. She voices understanding. - Additional Information Resuscitation Status: Full Code Discharge Diet: As Tolerated Discharge Activity: Balance Activity w/Rest, No Lifting Over 10 Pounds, No Lifting/Push/Pulling, Pelvic Rest, No tub bath Referrals: TISHA GLEASON MD [ACTIVE STAFF] - Follow up as needed Prescriptions: Docusate Sodium [Colace 100 mg Capsule] 100 mg PO BID #60 capsule Home Medications: Ibuprofen [Motrin 800 mg Tablet] 800 mg PO DAILY 11/01/19 Oxycodone HCl/Acetaminophen [Percocet 5-325 mg Tablet] 1 tab PO Q6HP PRN Docusate Sodium [Colace 100 mg Capsule] 100 mg PO BID #60 capsule 11/02/19 History of Present Illiness History of Present Illness: KAY CAMACHO is a 24 year old female Physical Exam - Physical Exam Vital Signs: Temp Pulse Resp BP Pulse Ox 98.8 F 73 18 131/76 H 100 11/02/19 07:37 11/02/19 07:37 11/02/19 07:37 11/02/19 07:37 11/02/19 07:37 Intake & Output 11/01/19 11/02/19 11/03/19 06:59 06:59 06:59 Intake Total 1000 2550 Balance 1000 2550 Weight 93.4 kg 100.834 kg Results Laboratory Results: WBC 9.5 10^3/uL (4.0-10.5) 11/01/19 07:31 RBC 4.11 10^6/uL (3.72-5.28) 11/01/19 07:31 Hgb 11.8 g/dL (12.0-15.5) L 11/01/19 07:31 Hct 35.1 % (36.0-47.0) L 11/01/19 07: MCV 85 fl (80-97) 11/01/19 07: MCH 28.8 pg (27.0-33.4) 11/01/19 07: MCHC 33.8 g/dL (32.0-36.0) 11/01/19 07: RDW 14.6 % (11.5-14.0) H 11/01/19 07:31 Plt Count 420 10^3/uL (150-450) 11/01/19 07:31 Lymph % (Auto) 18.1 % (13-45) 11/01/19 07: [place] % (Auto) 5.3 % (3-13) 11/01/19 07: Eos % (Auto) 0.6 % (0-6) 11/01/19 07: Baso % (Auto) 0.6 % (0-2) 11/01/19 07: Absolute Neuts (auto) 7.2 10^3/uL (1.7-8.2) 11/01/19 07:31 Absolute Lymphs (auto) 1.7 10^3/uL (0.5-4.7) 11/01/19 07: Absolute Monos (auto) 0.5 10^3/uL (0.1-1.4) 11/01/19 07: Absolute Eos (auto) 0.1 10^3/uL (0.0-0.6) 11/01/19 07: Absolute Basos (auto) 0.1 10^3/uL (0.0-0.2) 11/01/19 07: Seg Neutrophils % 75.4 % (42-78) 11/01/19 07:31 PT 13.7 SEC (11.4-15.4) 10/31/19 22:55 INR 1.05 10/31/19 22:55 APTT 33.5 SEC (23.5-35.8) 10/31/19 22:55 D-Dimer 4.64 ug/mL (0.00-0.50) H 10/31/19 22:55 Sodium 135.0 mmol/L (137-145) L 10/31/19 22:55 Potassium 4.6 mmol/L (3.6-5.0) 10/31/19 22:55 Chloride 103 mmol/L (98-107) 10/31/19 22:55 Carbon Dioxide 25 mmol/L (22-30) 10/31/19 22:55 Anion Gap 7 (5-19) 10/31/19 22:55 BUN 12 mg/dL (7-20) 10/31/19 22:55 Creatinine 0.64 mg/dL (0.52-1.25) 10/31/19 22:55 Est GFR ( Amer) > 60 (>60) 10/31/19 22:55 Est GFR (MDRD) Non-Af > 60 (>60) 10/31/19 22:55 Glucose 107 mg/dL (75-110) 10/31/19 22:55 Calcium 9.6 mg/dL (8.4-10.2) 10/31/19 22:55 Total Bilirubin 1.0 mg/dL (0.2-1.3) 10/31/19 22:55 Direct Bilirubin 0.1 mg/dL (0.0-0.4) 10/31/19 22:55 Neonat Total Bilirubin Not Reportable 10/31/19 22:55 Neonat Direct Bilirubin Not Reportable 10/31/19 22:55 Neonat Indirect Bili Not Reportable 10/31/19 22:55 AST 22 U/L (14-36) 10/31/19 22:55 ALT 11 U/L (<35) 10/31/19 22:55 Alkaline Phosphatase 102 U/L (38-126) 10/31/19 22:55 Troponin I 0.015 ng/mL 10/31/19 22:55 NT-Pro-B Natriuret Pep 40 pg/mL (<125) 10/31/19 22:55 Total Protein 8.2 g/dL (6.3-8.2) 10/31/19 22:55 Albumin 4.4 g/dL (3.5-5.0) 10/31/19 22:55 Urine Color YELLOW 10/31/19 23:55 Urine Appearance SLIGHTLY-CLOUDY 10/31/19 23:55 Urine pH 5.0 (5.0-9.0) 10/31/19 23:55 Ur Specific [place] 1.020 10/31/19 23:55 Urine Protein NEGATIVE mg/dL (NEGATIVE) 10/31/19 23:55 Urine Glucose (UA) NEGATIVE mg/dL (NEGATIVE) 10/31/19 23:55 Urine Ketones NEGATIVE mg/dL (NEGATIVE) 10/31/19 23:55 Urine Blood LARGE (NEGATIVE) H 10/31/19 23:55 Urine Nitrite NEGATIVE (NEGATIVE) 10/31/19 23:55 Urine Bilirubin NEGATIVE (NEGATIVE) 10/31/19 23:55 Urine Urobilinogen 4.0 mg/dL (<2.0) H 10/31/19 23:55 Ur Leukocyte Esterase TRACE (NEGATIVE) H 10/31/19 23:55 Urine WBC (Auto) 5 /HPF 10/31/19 23:55 Urine RBC (Auto) 1 /HPF 10/31/19 23:55 Urine Bacteria (Auto) TRACE /HPF 10/31/19 23:55 Squamous Epi Cells Auto 1 /HPF 10/31/19 23:55 Urine Mucus (Auto) MANY /LPF 10/31/19 23:55 Urine Ascorbic Acid 40 (NEGATIVE) H 10/31/19 23:55 10/31/19 22:55 Troponin I 0.015 NT-Pro-B Natriuret Pep 40 Impressions: Abdomen Ultrasound 10/31/19 23:30 IMPRESSION: Unremarkable exam. Chest/Abdomen CTA 11/01/19 00:49 IMPRESSION: Dilute contrast bolus. Imaging is degraded by patient motion, with resultant artifact. The best possible images were obtained. No central pulmonary embolus. Dependent atelectasis. Right basilar airspace consolidative change, possible pneumonia. Abdomen/Pelvis CT 11/01/19 03:38 IMPRESSION: Prominent uterus. Small amount of free fluid in the deep pelvis which appears complex. There may be a component of hemorrhage within this. Postsurgical change from bilateral tubal ligation. The bowel is nonobstructed.. No free air. No free fluid. Stroke Is this a Stroke Patient?: No Acute Heart Failure - Is this a Heart Failure Patient?: No
[2019-11-02 11:55] VITALS: BP 132/82
== END 2019-11-02 12:08 | disposition home or self-care (01) | DRG 776 ==
LOC: ER 20:52 → EH 11-01 05:57 → 2S 11-01 07:49
PROVIDERS: ADMIT Student in an Organized Health Care Education/Training Program; ATTEND Student in an Organized Health Care Education/Training Program
DX: O90.89 Other complications of the puerperium, not elsewhere classified (principal); G89.18 Other acute postprocedural pain; O34.211 Maternal care for low transverse scar from previous cesarean delivery; O99.89 Other specified diseases and conditions complicating pregnancy, childbirth and the puerperium; K21.9 Gastro-esophageal reflux disease without esophagitis; Z87.891 Personal history of nicotine dependence; Z91.040 Latex allergy status; Z79.891 Long term (current) use of opiate analgesic
CPT/HCPCS: 36415; 71275; 74176; 76705; 80053; 81001; 83880; 84484; 85025; 85379; 85610; 85730; 93005; 93010; 94799; 96361; 96374; 96375; 96376; 99285; J1170; J1885; J2270; J2405; J3490; J7030; J7120